=== PATIENT | female | born 1950 | race Caucasian/White ===

== ENCOUNTER 2019-02-20 20:12 | Emergency (ER) | payer OTHER ==
[~2019-02-20] VITALS: Ht 157.5 cm; Wt 99.8 kg
[2019-02-20] MEDS ORDERED: PHENYTOIN IV DILANTIN 1,000 MG in SODIUM CHL 0.9% 250 ML IV ONE (22:45)
[2019-02-20 23:33] VITALS: BP 118/66
== END 2019-02-21 00:36 | disposition short-term general hospital (02) ==
LOC: EDBD 20:12 → ER 20:16
DX: S06.6X9A Traumatic subarachnoid hemorrhage with loss of consciousness of unspecified duration, initial encounter (principal); S01.01XA Laceration without foreign body of scalp, initial encounter; S50.312A Abrasion of left elbow, initial encounter; S50.811A Abrasion of right forearm, initial encounter; E11.9 Type 2 diabetes mellitus without complications; E78.5 Hyperlipidemia, unspecified; I10 Essential (primary) hypertension; Z95.1 Presence of aortocoronary bypass graft; V43.52XA Car driver injured in collision with other type car in traffic accident, initial encounter; Y93.I9 Activity, other involving external motion; Y92.488 Other paved roadways as the place of occurrence of the external cause; Y99.8 Other external cause status
CPT/HCPCS: 70450; 71250; 93005; 94761; 96365; 99291; J1165; J7050